=== PATIENT | male | born 1990 | race Caucasian/White ===

== ENCOUNTER 2021-12-12 08:32 | Emergency (ER) | payer OTHER ==
[2021-12-12 08:38] VITALS: BP 132/66; PULSE 73; RESP 18; TEMP 98.1; BMI 25.3
[2021-12-12] MEDS ORDERED: IBUPROFEN 600 MG TABLET (FP) PO ONE ×2 (09:39→10:23)
== END 2021-12-12 10:30 | disposition home or self-care (01) ==
LOC: JER 08:32
DX: S83.92XA Sprain of unspecified site of left knee, initial encounter (principal); X50.9XXA Other and unspecified overexertion or strenuous movements or postures, initial encounter
CPT/HCPCS: 73564-TC-LT-FY; 99283-25

== ENCOUNTER 2023-06-16 07:05 | Emergency (ER) | payer OTHER ==
[2023-06-16 07:14] VITALS: BP 113/81; PULSE 59; RESP 20; TEMP 97.6; BMI 25.8
== END 2023-06-16 10:58 | disposition home or self-care (01) ==
LOC: JER 07:05
DX: S46.911A Strain of unspecified muscle, fascia and tendon at shoulder and upper arm level, right arm, initial encounter (principal); X50.0XXA Overexertion from strenuous movement or load, initial encounter
CPT/HCPCS: 73030-TC-RT-FY; 99283-25

== ENCOUNTER 2024-01-22 21:44 | Emergency (ER) | payer OTHER ==
[2024-01-22 22:02] VITALS: BP 129/81; PULSE 53; RESP 18; TEMP 97; BMI 24.7
[2024-01-22] MEDS ORDERED: IBUPROFEN 400 MG TABLET (FP) PO ONE (22:25)
[2024-01-22] MEDS ORDERED: CYCLOBENZAPRINE HCL 10 MG TABLET (FP) ONE (22:25)
[2024-01-22] MEDS: CYCLOBENZAPRINE HCL 10 MG TABLET (FP) PO ONE (22:26)
[2024-01-22] MEDS: IBUPROFEN 400 MG TABLET (FP) PO ONE (22:26)
== END 2024-01-22 22:29 | disposition home or self-care (01) ==
LOC: JERFT 21:44 → JER 21:44 → JERFT 22:29
DX: M62.830 Muscle spasm of back (principal)
CPT/HCPCS: 99283-25